=== PATIENT | female | born 1965 | race Caucasian/White ===

== ENCOUNTER → 2023-04-06 | Outpatient (CLI) | payer MEDICARE, MEDICAID, SELFPAY ==
[2023-04-06 17:42] LABS: Absolute Neutrophil Count 5.6 X10^3/uL (2.0-7.7); Basophil# 0.03 X10^3/uL; Basophil% 0.4 % (0-1); Eosinophil# 0.11 X10^3/uL; Eosinophils% 1.4 % (0-5); Hematocrit 46.5 % (37-47); Hemoglobin 14.8 g/dL (12.0-15.0); Lymphocyte % 20.7 % (19-41); Mean Corp Hgb Conc 31.8 g/dL (32-36); Mean Corpuscular Hgb 28.6 pg (27.0-32.0); Mean Corpuscular Volume 89.8 fL (81-99); Mean Platelet Vol. 10.6 fl (6.2-12.0); Monocyte# 0.39 X10^3/uL; NRBC Flagged by Analyzer 0 % (0-5); Neutrophil # 5.59 X10^3/uL (2.7-7.7); Neutrophil % 72.2 % (47-70); Platelet Count 287 K/mm3 (150-450); Red Blood Count 5.18 M/mm3 (4.2-5.4); White Blood Count 7.7 K/mm3 (4.4-11.0)
[2023-04-06 18:21] LABS: Hemoglobin A1c 5.9 % (3.8-5.6)
[2023-04-06 18:40] LABS: ALB/GLOB Ratio 0.7 RATIO (0.9-2.4); AST(SGOT) 15 U/L (15-37); Alanine Aminotransfer ALT/SGPT 21 U/L (13-56); Albumin, Serum 3.1 g/dL (3.2-5.0); Alkaline Phosphatase 111 U/L (45-117); Anion Gap 6 (5-15); BUN 10 mg/dL (7-18); BUN/Creat Ratio 14.5 RATIO (10-20); Calcium,Total 8.7 mg/dL (8.5-10.1); Chloride 105 mmol/L (98-107); Cholesterol 158 mg/dL (200); Creatinine, Serum 0.69 mg/dL (0.55-1.02); EST Glomerular Filtration Rate 93 mL/min (>60); Est Glom Filt Rate - Afr Amer 113 mL/min (>60); Globulin 4.5 g/dL (2.2-4.2); Glucose 97 mg/dL (74-106); High Density Lipoprotein 63 mg/dL; Potassium 3.9 mmol/L (3.5-5.1); Protein, Total 7.6 g/dL (6.4-8.2); Sodium Level 138 mmol/L (136-145); T4 Free Direct 0.97 ng/dL (0.76-1.46); Thyroid Stim Hormone (TSH) 1.43 uIU/mL (0.358-3.74); Triglycerides 163 mg/dL; Very Low Density Lipoprotein 33 mg/dL (5-40)
[2023-04-08 04:07] LABS: Thyroid Peroxidase AB 12 IU/mL (0-34)
== END | disposition home or self-care (01) ==
LOC: MFPLAB 16:44
PROVIDERS: PCP Family Medicine; Visit Provider Family Medicine
DX: R79.89 Other specified abnormal findings of blood chemistry (principal); E11.9 Type 2 diabetes mellitus without complications
CPT/HCPCS: 80053; 80061; 83036; 84439; 84443; 85025; 86376

== ENCOUNTER 2023-06-21 15:31 | Emergency (ER) | payer MEDICARE, MEDICAID, SELFPAY ==
[2023-06-21] VITALS (7 sets, daily range): BP systolic 122–142; BP diastolic 77–96; PULSE 63–78; RESP 16–20; TEMP 36.4–36.6; O2SAT 94–98; BMI 56.2
--- NOTE | 2023-06-21 15:46 | EKG12_ITS ---
Test Reason : SOB/CP Blood Pressure : / mmHG Vent. Rate : 065 BPM Atrial Rate : 065 BPM P-R Int : 166 ms QRS Dur : 090 ms QT Int : 442 ms P-R-T Axes : 054 -07 040 degrees QTc Int : 459 ms Normal sinus rhythm Normal ECG Confirmed by JUVENTINO MOREIRA, SARTHAK ([id number]), telegraph editor LESLIE COLEMAN ([id number]) on 06/28/2023 9:56:47 AM Referred By: Confirmed By:OLGA JAUREGUI MD
--- NOTE | 2023-06-21 15:47 | EDS_ITS ---
HPI History of Present Illness Chief Complaint: Chest Pain Informant: patient Onset/Context/Timing Onset: Today Narrative Narrative: Patient presents secondary to sharp chest pain. She was on her way home for doctor's appointment today when she got sudden onset of sharp pain to the right upper chest and into the right neck. She describes this as a angina attack. She states her symptoms improved after taking 2 nitro. She had a similar attack within the past month and was seen at [facility] in [place]. Her workup was negative. Her PCP has referred her to cardiology and she has an appointment to see the group here at [facility] on July 15. She states she was told she needed a stress test. Patient does report a history of a prior heart attack in she believes 2016. She states the heart cath showed a blockage but was told it was in a spot that if they try to stent it it will make things worse for her. I do not have records available to review. She is currently on aspirin but does not take Plavix or Brilinta. [facility] Medical History (Updated 06/21/23 @ 20:[address] Kate Bal MD) COPD (chronic obstructive pulmonary disease) Coronary artery disease Diabetes History of myocardial infarction Hx of ovarian cyst Home Medications albuterol sulfate 90 mcg/actuation aerosol inhaler inhalation 02/18/23 [History Last Taken Unknown] atorvastatin 40 mg tablet mg PO 02/18/23 [History Last Taken Unknown] baclofen 10 mg tablet 10 mg PO DAILY 02/18/23 [History Last Taken Unknown] desvenlafaxine succinate 100 mg tablet,extended release 24 hr mg PO 02/18/23 [History Last Taken Unknown] fluticasone fur. 200 mcg-umeclid 62.5 mcg-vilant 25 mcg inhalat.powder (Trelegy Ellipta) inhalation 02/18/23 [History Last Taken Unknown] hydroxyzine HCl 25 mg tablet mg PO 02/18/23 [History Last Taken Unknown] meloxicam 15 mg tablet mg PO 02/18/23 [History Last Taken Unknown] montelukast 10 mg tablet mg PO 02/18/23 [History Last Taken Unknown] nitroglycerin 0.3 mg sublingual tablet mg sublingual 02/18/23 [History Last Taken Unknown] oxybutynin chloride 5 mg tablet mg PO 02/18/23 [History Last Taken Unknown] pantoprazole 40 mg tablet,delayed release mg PO 02/18/23 [History Last Taken Unknown] phentermine 37.5 mg capsule 37.5 mg PO DAILY 02/18/23 [History Last Taken Unknown] bupropion HCl 100 mg tablet,12 hr sustained-release mg PO BID 04/20/23 [History Last Taken Unknown] buspirone 30 mg tablet 30 mg PO BID 04/20/23 [History Last Taken Unknown] fluticasone propionate 50 mcg/actuation nasal spray,suspension 1 spray intranasal DAILY 04/20/23 [History Last Taken Unknown] gabapentin 300 mg capsule mg PO TID 04/20/23 [History Last Taken Unknown] ipratropium 0.5 mg-albuterol 3 mg (2.5 mg base)/3 mL nebulization soln 3 ml inhalation Q4H PRN 04/20/23 [History Last Taken Unknown] metoprolol succinate 25 mg tablet,extended release 24 hr 25 mg PO DAILY PRN 1 06/21/22 [History Last Taken Unknown] psyllium husk (aspartame) 3.4 gram/5.8 gram oral powder (Metamucil Sugar-Free (aspartame)) ea PO BID 04/20/23 [History Last Taken Unknown] ropinirole 0.5 mg tablet mg PO QHS 04/20/23 [History Last Taken Unknown] suvorexant 10 mg tablet (Belsomra) mg PO QHS PRN 04/20/23 [History Last Taken Unknown] trazodone 100 mg tablet mg PO QHS 04/20/23 [History Last Taken Unknown] aspirin 81 mg tablet,delayed release (Adult Aspirin Regimen) 81 mg PO DAILY 06/02/23 [History Last Taken Unknown] Allergy/AdvReac Type Severity Reaction Status Date / Time No Known Allergies Allergy Verified 06/21/23 15:35 Family History Mother Heart disease Surgical History Hx of appendectomy Hx of breast biopsy Hx of tubal ligation Social History Smoking Status: Current every day smoker tobacco type: cigarettes alcohol intake: current alcohol intake frequency: holidays/special occasions only ROS ROS ED Constitutional Constitutional ED: Denies chills or fever(s) Eyes Eyes: Denies discharge from eye(s) ENT ENT ED: Denies discharge from eye(s), rhinorrhea or sore throat Cardiovascular Cardiovascular: Reports chest pain; Denies palpitations Respiratory/Chest Respiratory/Chest: Reports dyspnea; Denies cough Gastrointestinal Gastrointestinal: Denies abdominal pain, nausea or vomiting Genitourinary Genitourinary ED: Denies dysuria Musculoskeletal Musculoskeletal: Denies back pain or extremity pain Integumentary Denies Abrasions or rash Neurologic Neurologic: Denies headache(s) or weakness Psychiatric Psychiatric: Reports anxiety; Denies depression Allergic/Immunologic Allergic/Immunologic ED: Denies lip swelling or urticaria EXAM Physical Exam Const Vital Signs: 06/21/23 15:32 06/21/23 15:38 06/21/23 17:33 Temperature 97.6 F L Temperature Source Temporal Pulse Rate 69 68 Respiratory Rate 18 16 Blood Pressure 135/77 H 135/77 H Blood Pressure Mean 96 96 Pulse Ox 95 94 95 Oxygen Delivery Method Room Air Room Air Room Air Oxygen Flow Rate (L/min) 06/21/23 17:33 06/21/23 19:10 06/21/23 19:16 Temperature 98 F Temperature Source Temporal Pulse Rate 63 73 71 Respiratory Rate 16 20 H 19 H Blood Pressure 122/96 H 134/79 H Blood Pressure Mean 104 97 Pulse Ox 96 97 97 Oxygen Delivery Method Room Air Nasal Cannula Oxygen Flow Rate (L/min) 2 Positive well nourished and well developed General Appearance ED: well developed HEENT Reports moist mucous membranes Eyes EOMs intact bilaterally Chest Wall inspection of chest normal and palpation of chest normal Resp normal respiratory effort and clear to auscultation bilaterally Cardio regular rate and regular rhythm GI soft to palpation and non-tender Extremity Extremity Narrative: Scattered bruises noted to the lower extremities. No erythema or excessive warmth. Neuro oriented x3 Neuro Narrative: No focal neurologic deficit. MDM MDM MDM Narrative Medical decision making narrative: Patient placed on satellite project site monitor. EKG obtained to evaluate for cardiac arrhythmia/ischemia. IV line initiated. Labwork obtained to evaluate for leukocytosis, anemia, and electrolyte derangement. Chest x-ray obtained to evaluate for acute lung pathology, cardiac size, or mediastinal abnormality. Patient did take aspirin and nitro prior to arrival. History & Record Review Discussion w/independent historian: Patient Lab Data Attestation: I reviewed the patient's lab results. Labs: Laboratory Results - last 24 hr 06/21/23 06/21/23 16:51 19:39 WBC 13.1 H RBC 5.40 Hgb 15.4 H Hct 47.9 H MCV 88.7 MCH 28.5 MCHC 32.2 RDW Std Deviation 47.6 H RDW Coeff of Nya 14.6 Plt Count 291 MPV 9.7 Immature Gran % (Auto) 0.400 Neut % (Auto) 83.9 H Lymph % (Auto) 9.8 L Dewey % (Auto) 5.3 Eos % (Auto) 0.3 Baso % (Auto) 0.3 Absolute Neuts (auto) 11.0 H Absolute Lymphs (auto) 1.28 Nucleated RBC % 0 Sodium 134 L Potassium 3.8 Chloride 102 Carbon Dioxide 29.0 Anion Gap 3 L BUN 14 Creatinine 0.87 Estim Creat Clear Calc 113.59 Est GFR (MDRD) Af Amer 86 Est GFR (MDRD) Non-Af 71 BUN/Creatinine Ratio 16.1 Glucose 117 H Calcium 9.6 Troponin I High Sens 8 8 Radiography Chest X-Ray - ED: 1 View, Read by ED Physician, Normal, Heart, Lungs and Mediastinum Diagnostic Testing: Clinical Impression(s) from Imaging Studies Chest X-Ray 06/21/23 16:58 IMPRESSION: No radiographic evidence of acute cardiopulmonary disease. Electronically Signed: Shan Weston MD at 17:49 EST , EKG Initial EKG: Attestation: I personally reviewed and interpreted this EKG as follows: Interpretation: Sinus Rhythm (Sinus at 65 with no acute ischemia.) Treatment and Re-Evaluation :: CBC was a white count of 13.1 with 84% neutrophils. Hemoglobin is 15.4. Chemistry studies largely unremarkable with normal renal function. Troponin is 8. EKG is sinus at 65 with no evidence of ischemia. Portable chest x-ray unremarkable per my interpretation. Radiology interpretation reviewed and agrees. Repeat 2-hour troponin is also 8. At this time patient is resting comfortably. We discussed her having more frequent episodes of this chest pain and she has already been referred to have a stress test. I offered to admit her for this testing but she states that she believes this would make her anxiety worse and wishes to wait for her appointment. With 2 negative troponins I do feel that we can discharge her to home, however patient was given instructions to return if she has any concerns. I also recommended she talk to the cardiology office to see if she can be placed on a cancellation list so that she might be able to be seen sooner. Discharge Plan Triage Chief Complaint: Chest Pain ED Provider: Kate Bal Dx/Rx/DC Orders Clinical Impression: Chest pain Instructions: ED Chest Pain, Uncertain Cause Prescriptions: No Action Trelegy Ellipta 200-62.5-25 mcg blister with device inhalation atorvastatin 40 mg tablet PO desvenlafaxine succinate 100 mg tablet extended release 24 hr PO oxybutynin chloride 5 mg tablet PO pantoprazole 40 mg tablet,delayed release (DR/EC) PO montelukast 10 mg tablet PO hydroxyzine HCl 25 mg tablet PO albuterol sulfate 90 mcg/actuation HFA aerosol inhaler inhalation meloxicam 15 mg tablet PO nitroglycerin 0.3 mg tablet, sublingual sublingual baclofen 10 mg tablet 10 mg PO DAILY phentermine 37.5 mg capsule 37.5 mg PO DAILY Rx Instructions: must administer 30 minutes before or 1-2 hours after breakfast gabapentin 300 mg capsule PO TID bupropion HCl 100 mg tablet sustained-release 12 hr PO BID ropinirole 0.5 mg tablet PO QHS Belsomra 10 mg tablet PO QHS PRN trazodone 100 mg tablet PO QHS fluticasone propionate 50 mcg/actuation spray,suspension 1 spray intranasal DAILY Rx Instructions: administer into each nostril buspirone 30 mg tablet 30 mg PO BID ipratropium-albuterol 0.5 mg-3 mg(2.5 mg base)/3 mL solution for nebulization 3 ml inhalation Q4H PRN metoprolol succinate 25 mg tablet extended release 24 hr 25 mg PO DAILY PRN Metamucil Sugar-Free (aspart) 3.4 gram/5.8 gram powder PO BID aspirin [Adult Aspirin Regimen] 81 mg tablet,delayed release (DR/EC) 81 mg PO DAILY Primary Care Provider: Luis Herrera Referrals: Luis Herrera MD [Primary Care Provider] - Activity Restrictions/Additional Instructions: Follow-up with cardiology as discussed. Disposition Disposition: Home, Self Care
--- NOTE | 2023-06-21 15:50 | NURSING ---
NO OLD EKGS
[2023-06-21 16:58] LABS: Absolute Lymphocyte Count 1.28 X10^3/uL (0.83-4.51); Basophil# 0.04 X10^3/uL; Basophil% 0.3 % (0-1); Eosinophil# 0.04 X10^3/uL; Eosinophils% 0.3 % (0-5); Hematocrit 47.9 % (37-47); Hemoglobin 15.4 g/dL (12.0-15.0); Lymphocyte # 1.28 X10^3/ul (0.83-4.51); Lymphocyte % 9.8 % (19-41); Mean Corp Hgb Conc 32.2 g/dL (32-36); Mean Corpuscular Hgb 28.5 pg (27.0-32.0); Mean Corpuscular Volume 88.7 fL (81-99); Mean Platelet Vol. 9.7 fl (6.2-12.0); Monocyte# 0.69 X10^3/uL; Monocyte% 5.3 % (0-10); NRBC Flagged by Analyzer 0 % (0-5); Neutrophil # 10.96 X10^3/uL (2.7-7.7); Neutrophil % 83.9 % (47-70); Platelet Count 291 K/mm3 (150-450); RBC Distribution Width CV 14.6 % (11.6-14.6); RBC Distribution Width SD 47.6 fl (35.1-43.9); White Blood Count 13.1 K/mm3 (4.4-11.0)
--- NOTE | 2023-06-21 16:58 | RAD_ITS ---
EXAM: XR CHEST, 1 VIEW CLINICAL INDICATION: chest pain TECHNIQUE: Frontal view of the chest. COMPARISON: No relevant prior studies available. FINDINGS: LUNGS AND PLEURAL SPACES: Unremarkable. No consolidation or edema. No pneumothorax. No effusion. HEART: Unremarkable. Cardiac silhouette not enlarged. MEDIASTINUM: Central airways and mediastinal contour are unremarkable. BONES/JOINTS: Unremarkable. No acute fracture. SOFT TISSUES: Unremarkable. RAD/Chest 1 View (Portable) IMPRESSION: No radiographic evidence of acute cardiopulmonary disease. Electronically Signed: Shan Weston MD at 17:49 EST ,
[2023-06-21 17:20] LABS: Anion Gap 3 (5-15); BUN 14 mg/dL (7-18); BUN/Creat Ratio 16.1 RATIO (10-20); Calcium,Total 9.6 mg/dL (8.5-10.1); Chloride 102 mmol/L (98-107); Creatinine, Serum 0.87 mg/dL (0.55-1.02); EST Glomerular Filtration Rate 71 mL/min (>60); Est Glom Filt Rate - Afr Amer 86 mL/min (>60); Estimated Creatinine Clearance 113.59 ml/min; Glucose 117 mg/dL (74-106); Potassium 3.8 mmol/L (3.5-5.1); Sodium Level 134 mmol/L (136-145); Troponin-I HS (w/2H Reflex) 8 pg/mL (3.0-54.0)
[2023-06-21 18:56] LABS: Reflex Troponin-HS? (from REC) Y
[2023-06-21 20:04] LABS: Troponin-I HS 8 pg/mL (3.0-54.0)
== END 2023-06-21 20:26 | disposition home or self-care (01) ==
PROVIDERS: Emergency Provider Emergency Medicine; PCP Family Medicine; Visit Provider Emergency Medicine
DX: R07.9 Chest pain, unspecified (principal); J44.9 Chronic obstructive pulmonary disease, unspecified; E11.9 Type 2 diabetes mellitus without complications; Z79.82 Long term (current) use of aspirin; I25.10 Atherosclerotic heart disease of native coronary artery without angina pectoris; I25.2 Old myocardial infarction; Z79.899 Other long term (current) drug therapy; Z79.51 Long term (current) use of inhaled steroids; F17.210 Nicotine dependence, cigarettes, uncomplicated
CPT/HCPCS: 71045; 80048; 84484; 85025; 93005; 99284; A4216

== ENCOUNTER 2023-08-17 12:42 | Outpatient (CLI) | payer MEDICARE, MEDICAID, SELFPAY ==
--- NOTE | 2023-08-17 12:51 | CT_ITS ---
STUDY: CT CHEST WITHOUT CONTRAST REASON FOR EXAM: Female, 57 years old. SOB RADIATION DOSAGE (If Supplied By Facility): CTDIvol = ( 48.66 ) mGy, DLP = ( 2707.93 ) mGycm TECHNIQUE: Transaxial imaging was performed without the administration of intravenous contrast material. Cardiac over read examination. Individualized dose optimization techniques were used for this CT. COMPARISON: No relevant priors. FINDINGS: CHEST Linear scarring is seen in the lung bases as well as in the anterior aspect of the lingular segment of the left upper lobe. There is no demonstrated pleural abnormality. There are minimal calcifications of the coronary arteries. There are small lymph nodes within the mediastinum, which are normal in size and morphology most compatible with reactive lymph hyperplasia. Normal hilar regions. Normal unenhanced pulmonary arteries. There is mild atherosclerotic calcification of the aortic arch. There are degenerative changes of the thoracic spine. Fatty infiltration of the liver. CT/Limited Chest CT Cardiac Only IMPRESSION: Minimal coronary artery calcification. Linear scarring in the lung bases as well as in the anterior aspect of the lingular segment of the left upper lobe. Electronically Signed: Jorgito Morales MD at 15:20 EDT ,
[2023-08-17 13:20] VITALS: BP 141/78; PULSE 64; RESP 18; O2SAT 93; BMI 56.0
[2023-08-17 13:24] LABS: CREATININE FINGERSTICK < 1.0 mg/dL (0.55-1.02); EGFR FINGERSTICK > 60.0000 mL/min (>60)
[2023-08-17 13:31] VITALS: BP 141/78; PULSE 64
[2023-08-17] MEDS: Nitroglycerin SL (ED/IMG/CATH) 0.4 MG TABLET SL (13:31)
[2023-08-17 13:45] VITALS: BP 96/68; PULSE 67; RESP 18; O2SAT 92
--- NOTE | 2023-08-22 17:41 | CCTA.WCONT ---
CCTA w/Cont Coronary Arteries Date of Study:: 08/17/23 Shortness of breath Coronary Calcium Scoring: High-resolution Computed Tomographic imaging of the chest was performed on [08/17/2023], with particular attention paid to the coronary arteries. Intravenous contrast agent was administered per protocol and images reconstructed and displayed. LEFT MAIN CORONARY ARTERY: This arose from the left coronary cusp and bifurcating to left anterior descending artery and left circumflex artery. No significant stenosis was noted in this vessel. [] LEFT ANTERIOR DESCENDING CORONARY ARTERY: No significant atherosclerotic plaquing was noted in this vessel. [] LEFT CIRCUMFLEX CORONARY ARTERY: No significant atherosclerotic plaquing was noted in this vessel. [] RIGHT CORONARY ARTERY: No significant atherosclerotic plaquing was noted in this vessel. [] THORACIC AORTA: Normal [] PULMONARY ARTERY: Normal CORONARY CALCIUM SCORE: 0 Conclusion: No significant atherosclerotic cardiovascular disease present. Coronary calcium score of 0. []
== END 2023-08-17 23:59 | disposition home or self-care (01) ==
LOC: CT 12:46
PROVIDERS: PCP Family Medicine; Referring Provider Internal Medicine Cardiovascular Disease; Visit Provider Internal Medicine Cardiovascular Disease
DX: R06.02 Shortness of breath (principal); R53.83 Other fatigue; R07.9 Chest pain, unspecified; I25.10 Atherosclerotic heart disease of native coronary artery without angina pectoris; R91.8 Other nonspecific abnormal finding of lung field; K76.0 Fatty (change of) liver, not elsewhere classified
CPT/HCPCS: 75571; 75574; 76380; Q9967

== ENCOUNTER → 2023-08-23 | Outpatient (CLI) | payer MEDICARE, MEDICAID, SELFPAY ==
--- NOTE | 2023-08-23 14:04 | ECHOCS_ITS ---
Reason For Study: CHEST PAIN Procedure This was a 2D Doppler, Color Flow transthoracic echocardiogram. The study was technically difficult. Limited views were obtained. Contrast injection was performed. Exam performed in department. Left Ventricle The left ventricular ejection fraction is 60 %. Unable to assess diastolic function. Right Ventricle Mildly dilated right ventricle. Mild to moderate global right ventricular systolic dysfunction. Atria The left atrium is not well visualized. The right atrium is not well visualized. Mitral Valve Mitral valve not well visualized. Tricuspid Valve The tricuspid valve is not well visualized. Aortic Valve The aortic valve is not well visualized. Pulmonic Valve The pulmonic valve is not well visualized. Great Vessels Mildly dilated aortic root. Pericardium/Pleural No pericardial effusion. Medication 22 gauge I.V. with prn adaptor inserted into right arm. Diluted definity 3.5ml given slow IV push to enhance endocardial definition. MMode/2D Measurements & Calculations RVDd: 3.5 cm LVOT diam: 2.0 cm Ao root diam: 3.7 cm LVOT area: 3.0 cm2 LAV(MOD-bp): 36.7 ml SV(MOD-sp4): 41.1 ml LVAd ap4: 24.9 cm2 LAV(MOD-bp) Indexed: 14.4 ml/m2 LVLd ap4: 7.9 cm LAV(MOD-sp2): 41.5 ml EDV(MOD-sp4): 62.6 ml LAV(MOD-sp4): 31.8 ml EDV(sp4-el): 66.1 ml LVAs ap4: 12.7 cm2 LVLs ap4: 6.2 cm ESV(MOD-sp4): 21.5 ml ESV(sp4-el): 21.9 ml EF(MOD-sp4): 65.6 % EF(sp4-el): 66.9 % SV(sp4-el): 44.2 ml LA dimension(2D): 3.6 cm TAPSE: 1.7 cm Time Measurements MV dec time: 0.23 sec Doppler Measurements & Calculations MV E max boris: 64.9 cm/sec Lat Peak E' Boris: 8.9 cm/sec Med Peak E' Boris: 10.5 cm/sec MV A max boris: 84.1 cm/sec E/E' lat: 7.3 E/E' med: 6.2 MV E/A: 0.77 Ao V2 max: 130.0 cm/sec LV V1 max: 105.1 cm/sec MV dec slope: 284.1 cm/sec2 Ao max P.8 mmHg LV V1 max P.4 mmHg Ao V2 mean: 97.5 cm/sec LV V1 mean P.9 mmHg Ao mean P.2 mmHg LV V1 mean: 82.7 cm/sec Ao V2 VTI: 23.4 cm LV V1 VTI: 18.9 cm AV (velocity ratio): 0.81 RAÚL(I,D): 2.4 cm2 RAÚL(V,D): 2.4 cm2 SV(LVOT): 57.0 ml PA V2 max: 92.2 cm/sec PA max PG (full): 1.3 mmHg ECHO/Echo Complete W/ Contrast Interpretation Summary The study was technically difficult. Suboptimal images. The left ventricular ejection fraction is 60 %. Mildly dilated right ventricle. Mild to moderate global right ventricular systolic dysfunction. Mildly dilated aortic root. Ordering Physician: Veto Farley Referring Physician: Veto Farley MD Performed By: Talia Wills RDCS
== END | disposition home or self-care (01) ==
LOC: CVS 14:04
PROVIDERS: PCP Family Medicine; Referring Provider Internal Medicine Cardiovascular Disease; Visit Provider Internal Medicine Cardiovascular Disease
DX: R07.9 Chest pain, unspecified (principal); R06.02 Shortness of breath; R53.83 Other fatigue; R60.9 Edema, unspecified
CPT/HCPCS: 93306; Q9957; A4216; C8929

== ENCOUNTER 2023-10-11 06:37 | Day surgery (SDC) | payer MEDICARE, MEDICAID, SELFPAY ==
[2023-10-11] VITALS (9 sets, daily range): BP systolic 88–132; BP diastolic 65–87; PULSE 71–81; RESP 16; TEMP 36.1–36.3; O2SAT 92–99; BMI 56.9
[2023-10-11] MEDS: Lactated Ringers 1,000 ML 15 ML IV (07:33)
[2023-10-11] MEDS: Midazolam 2 MG/2 ML Syringe IV (07:34)
--- NOTE | 2023-10-11 08:12 | RAD_ITS ---
PROCEDURE: Bilateral L4-L5 and L5-S1 medial branch nerve block. DATE OF EXAMINATION: October 11, 2023. INDICATION: Female, 57 years old. Chronic low back pain. FLUOROSCOPY TIME (if supplied): (26 seconds) minutes/seconds. 31.32 mGy. 6 images were submitted. RAD/Lumbar Spine 2 or 3 Views IMPRESSION: Intraoperative fluoroscopic services provided for bilateral L4-L5 and L5-S1 medial nerve block. Electronically Signed: Jogrito Morales MD at 15:33 EDT ,
[2023-10-11] MEDS: Midazolam 2 MG/2 ML Syringe (08:15)
[2023-10-11] MEDS: MethylPREDNISolone Acetate 80 MG/ML Vial (08:20)
[2023-10-11] MEDS: Lidocaine 1% (5 ml sdv) 5 ML Vial (08:21)
[2023-10-11] MEDS: Bupivacaine 0.25% 30 ML Vial (08:21)
--- NOTE | 2023-10-11 10:32 | OP.PCM_ITS ---
Report of Operation Date of Procedure: 10/11/23 Pre-Operative Diagnosis: Lumbosacral spondylosis, lumbosacral degenerative dise ase, lumbar facet arthropathy Post-Operative Diagnosis: Lumbosacral spondylosis, lumbosacral degenerative disease, lumbar facet arthropathy Description of Surgical Findings:: PROCEDURE PERFORMED: Bilateral lumbar medial branch block at L4, L5, and S1. ANESTHESIA: Moderate sedation BLOOD LOSS: Minimal. COMPLICATIONS: None. DESCRIPTION OF PROCEDURE: History and physical of today was reviewed. Risks and benefits of the procedure were explained. The patient understood and agreed to proceed. Informed consent was obtained. IV inserted per routine protocol. The patient was taken to the operating room and placed in the prone position with a pillow positioned underneath the abdomen. The lower back area was prepped and draped in a sterile fashion using iodine x3. Under fluoroscopy guidance on AP view, the L4 through S1 vertebral bodies were visualized. The skin and subcutaneous tissue was anesthetized with approximately 5 mL of 1% lidocaine using a 25-gauge regular needle. Under direct visualization with fluoroscopy, at approximately 25-degree angle, starting on the left L4, ending on the right L4, passing through the L5 and S1 bilaterally, using a 22-gauge 3-1/2-inch spinal needle, the needle was advanced via the skin. The tip of the needle was maneuvered and directed towards the superior medial gutter of the transverse process at the vicinity of the medial branch. Once tip of the needle was in contact with the bone, the needle was pulled approximately 2 mm off the bone. After negative aspiration for blood or CSF and confirmation on AP, oblique as well as lateral view, a total of 12 mL of preservative-free 0.25% Marcaine with 80 mg of Depo-Medrol was injected in divided doses between those six levels. The needles were then removed intact. The patient experienced no sign or symptoms of intrathecal or intravascular injection. The patient experienced no paresthesia. The procedure was completed without any apparent difficulty or any complications. The patient appeared to tolerate it well. ASSESSMENT AND PLAN: This is a 57-year-old female with lumbosacral spondylosis, lumbosacral degenerative disease, lumbar facet arthropathy status post bilateral lumbar medial branch block at L4-S1, patient will continue her current medications, patient will follow in approximately 1 to 2 weeks for reevaluation
== END 2023-10-11 09:47 | disposition home or self-care (01) ==
LOC: SDC 06:38 → AC 06:39
PROVIDERS: PCP Family Medicine; Referring Provider Anesthesiology Pain Medicine; Visit Provider Anesthesiology Pain Medicine
PROC: 3E0S3BZ Introduction of Anesthetic Agent into Epidural Space, Percutaneous Approach (ICD-10-PCS; CPT 62322; principal; 2023-10-11 07:45)
DX: M47.817 Spondylosis without myelopathy or radiculopathy, lumbosacral region (principal); M51.37 Other intervertebral disc degeneration, lumbosacral region; M46.96 Unspecified inflammatory spondylopathy, lumbar region; Z79.51 Long term (current) use of inhaled steroids; Z79.82 Long term (current) use of aspirin; Z79.899 Other long term (current) drug therapy
CPT/HCPCS: 64493; 64494; 64483; 72100; 99152; 99153; J7120; A4216

== ENCOUNTER 2023-11-29 05:51 | Day surgery (SDC) | payer MEDICARE, MEDICAID, SELFPAY ==
[2023-11-29] VITALS (7 sets, daily range): BP systolic 93–114; BP diastolic 51–86; PULSE 67–78; RESP 16–18; TEMP 36.1–37.1; O2SAT 92–97; BMI 61.7
--- NOTE | 2023-11-29 06:30 | RAD_ITS ---
PROCEDURE: Left L4-S1 radiofrequency ablation. DATE OF EXAMINATION: November 29, 2023. INDICATION: Female, 58 years old. Chronic low back pain. FLUOROSCOPY TIME (if supplied): (29 seconds) minutes/seconds. 40.24 mGy. 9 fluoroscopic images were obtained. RAD/Lumbar Spine 2 or 3 Views IMPRESSION: Intraoperative fluoroscopic images provided for left L4-S1 radiofrequency ablation. Electronically Signed: Jorgito Morales MD at 15:14 EDT ,
[2023-11-29] MEDS: Lactated Ringers 1,000 ML 15 ML IV (06:49)
--- NOTE | 2023-11-29 07:29 | PCM.PRE.AN2 ---
ASA Classification* ASA Classification ASA Classification: 3 Assessment & Plan Anesthesia* Anesthesia Assessment Anesthesia Assessment: Discussed sedation and/or anesthesia options, risks, benefits, and alternatives with patient/parents/legal guardian/POA. Questions invited. The patient/parents/legal guardian/POA seems to understand and agrees to proceed with anesthesia plan. Reviewed the physical assessment, medical history, allergy history and patient home medications list prior to surgery/procedure/anesthetic and documented any changes. Performed airway and anesthesia risk assessments. Anesthesia Type Anesthesia Type: MAC (*see written pre anesthesia record for full assessment) Anesthesia Focused Assessment* Temperature: 98.8 F Pulse Rate: 78 Blood Pressure: 114/86 Respiratory Rate: 18 Pulse Ox: 97 Airway Assessment Mouth opens: >3 cm Mallampati Score: III Focused Labs Anesthesia Preop lab: CBC WBC 13.1 K/mm3 (4.4-11.0) H 06/21/23 16:51 RBC 5.40 M/mm3 (4.2-5.4) 06/21/23 16:51 Hgb 15.4 g/dL (12.0-15.0) H 06/21/23 16:51 Hct 47.9 % (37-47) H 06/21/23 16:51 Plt Count 291 K/mm3 (150-450) 06/21/23 16:51 CHEMISTRY Potassium 3.8 mmol/L (3.5-5.1) 06/21/23 16:51 Sodium 134 mmol/L (136-145) L 06/21/23 16:51 BUN 14 mg/dL (7-18) 06/21/23 16:51 Creatinine 0.87 mg/dL (0.55-1.02) 06/21/23 16:51 Glucose 117 mg/dL (74-106) H 06/21/23 16:51 TSH 1.43 uIU/mL (0.358-3.74) 04/06/23 16:44 COAG Pre-Assessment Diagnosis/Proposed Procedure Planned Operative Procedure(s): bird Anesthesia History Anesthesia History - director patient financial services: Anesthesia History - director patient financial services Hx Hospitalization No 10/07/23 09:26 Any Problems With Anesthesia No 10/07/23 09:26 Cholinesterase deficiency No 10/07/23 09:26 You/Your Family Experience No 10/07/23 09:26 fever (hyperthermia) with Relationship Recent Exposure to Contagious No 11/29/23 06:22 Disease Does patient have nerve No 10/07/23 09:26 stimulator Patient instructed to have device shut off --Does patient have Pacemaker No 11/29/23 06:22 or ICD? When Was Last Pacemaker Check QUESTION #4 FULL TEXT: You/Your Family Experience fever (hyperthermia) with Anesthesia Last Oral Intake Last Oral intake: Last Oral Intake NPO since 03:30 11/29/23 06:22 Meds taken in AM with sips of Yes 11/29/23 06:22 water? Meds patient instructed to take am of surgery PONV PONV - director patient financial services: PONV - director patient financial services Female HX of Motion Sickness HX of N/V After Surgery Non-Smoker Duration of Surgery greater than 60 minutes Number of Risk Factors PONV Score Height & Weight Height & Weight: Anesthesia: Height & Weight Height 5 ft 4 in 11/29/23 06:22 Weight: 163.3 kg 11/29/23 06:22 Body Mass Index (BMI) 61.7 11/29/23 06:22 Respiratory Assessment Respiratory Assessment - director patient financial services: Respiratory Tract Infection Hx - director patient financial services Hx Respiratory Tract Infection No 10/07/23 09:26 STOP Sleep Apnea STOP Sleep Apnea - director patient financial services: STOP Sleep Apnea - director patient financial services Hx Hypertension Yes 10/07/23 09:26 Hx Sleep Apnea Yes 10/11/23 09:00 CPAP Yes: UNABLE TO TOLERATE MASK 10/11/23 08:30 BIPAP No 10/07/23 09:26 Do you snore loudly (louder than talking or can be heard Do you often feel tired/ fatigued/ sleepy during daytime? Has anyone observed you stop breathing during sleep? STOP Results QUESTION #5 FULL TEXT : Do you snore loudly (louder than talking or can be heard through closed doors)? 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 Specify any problems Hx of Preganancy in last 3 Months Nurse Filling Out Transfusion & Questions: Date: Time: Patient unable to answer at this time (ie. confused, unrespo /Reproduction History /Reproductive History - director patient financial services: /Reproductive Hx- director patient financial services Hx Now Gestational Age (in weeks): EDC: Hx Hx Para Hx Section SAB No 10/07/23 09:26 Active Medications Active Medications: Current Medications Generic Name Dose Route Start Last Admin Trade Name Freq PRN Reason Stop Dose Admin Lactated Ringer's 1,000 mls @ 15 mls/hr 11/29/23 06:15 11/29/23 06:49 IV 15 mls/hr .Q48H NEREIDA Administration PFSH Medical History Wears glasses Wears partial dentures Anxiety Rash Uses wheelchair Walker as ambulation aid Ambulates with cane Arthritis Bladder disease Fatty liver Back pain Smoker CPAP (continuous positive airway pressure) dependence Sleep apnea Asthma COPD (chronic obstructive pulmonary disease) History of echocardiogram Cardiology follow-up encounter Dyslipidemia Hypertension Idiopathic spontaneous dissection of coronary artery Morbid obesity Hyperlipidemia Insulin resistance Depression Restless leg syndrome Insomnia AMIE (obstructive sleep apnea) GERD (gastroesophageal reflux disease) Lumbar stenosis Breast mass, right Bladder spasm Fibromyalgia SOB (shortness of breath) on exertion Fatigue Edema Abnormal TSH Anxiety, generalized Chest pain at rest Chest pain History of myocardial infarction Coronary artery disease Angina pectoris without myocardial infarction Facet arthritis of lumbosacral region Obesity Left knee DJD Right knee DJD Lower extremity pain Peripheral polyneuropathy Sacroiliac joint dysfunction of right side Low back pain Hx of ovarian cyst Angina pectoris COPD (chronic obstructive pulmonary disease) Diabetes Home Medications ?Medication ?Instructions ?Recorded ?Last Taken ?Type albuterol sulfate 90 mcg/actuation 2 puff inhalation Q4H PRN 02/18/23 Unknown History aerosol inhaler shortness of breath or wheezing fluticasone propionate 50 1 spray intranasal DAILY 04/20/23 Unknown History mcg/actuation nasal spray,suspension ipratropium 0.5 mg-albuterol 3 mg 3 ml inhalation Q4H PRN shortness 04/20/23 Unknown History (2.5 mg base)/3 mL nebulization of breath soln aspirin 81 mg tablet,delayed 81 mg PO DAILY 06/02/23 Unknown History release (Adult Aspirin Regimen) atorvastatin 40 mg tablet 40 mg PO DAILY 06/29/23 Unknown History desvenlafaxine succinate 100 mg 100 mg PO DAILY 06/29/23 11/29/23 History tablet,extended release 24 hr ergocalciferol (vitamin D2) 1,250 1,250 mcg PO QWEEK 06/29/23 Unknown History mcg (50,000 unit) capsule fluticasone fur. 200 mcg-umeclid 1 inh inhalation DAILY 06/29/23 10/11/23 History 62.5 mcg-vilant 25 mcg inhalat.powder (Trelegy Ellipta) hydroxyzine HCl 25 mg tablet 25 mg PO DAILY 06/29/23 Unknown History nystatin 100,000 unit/gram topical 1 applic topical DAILY 06/29/23 Unknown History powder (Nystop) oxybutynin chloride 5 mg tablet 5 mg PO DAILY 06/29/23 Unknown History pantoprazole 20 mg tablet,delayed 20 mg PO DAILY 06/29/23 Unknown History release ropinirole 0.5 mg tablet 0.5 mg PO QHS 06/29/23 Unknown History trazodone 100 mg tablet 100 mg PO QHS 06/29/23 Unknown History amlodipine 5 mg tablet 5 mg PO DAILY #90 tabs 07/07/23 11/29/23 Rx montelukast 10 mg tablet 10 mg PO DAILY 07/07/23 Unknown History hydrocodone-acetaminophen 5-325mg 1 tab PO QDAY PRN pain 08/26/23 Unknown History 5mg-325mg nitroglycerin 0.3 mg sublingual 0.3 mg sublingual ONCE PRN chest 08/26/23 Unknown History tablet pain suvorexant 10 mg tablet (Belsomra) 10 mg PO QHS PRN sleep 08/26/23 Unknown History Allergy/AdvReac Type Severity Reaction Status Date / Time adhesive tape Allergy Intermediate Rash Verified 11/29/23 06:17 Family History Mother Heart disease Arthritis Grandmother Heart disease Surgical History Hx of cardiac catheterization Hx of ovarian cystectomy Hx of tubal ligation Hx of breast biopsy Hx of appendectomy Social History Smoking Status: Current every day smoker tobacco type: cigarettes alcohol intake: never substance use type: does not use caffeine: Yes Type: coffee Number of servings: 32 Review of Systems (Anesthesia) ROS Narrative System reviewed and no additional complaints, except as documented.
[2023-11-29] MEDS: Lidocaine 1% (30 ml sdv) 30 ML Vial (07:44)
[2023-11-29] MEDS: Triamcinolone Acetonide 40 MG/ML Vial (07:45)
--- NOTE | 2023-11-29 07:54 | PCM.OPRPT ---
Report of Operation Date of Procedure: 11/29/23 Pre-Operative Diagnosis: Lumbosacral spondylosis, lumbosacral degenerative disc disease, lumbar facet arthropathy Post-Operative Diagnosis: Lumbosacral spondylosis, lumbosacral degenerative disc disease, lumbar facet arthropathy Surgery/Procedure Performed:: Left-sided lumbar radiofrequency ablation of the medial branch L4, L5, S1 Type of Anesthesia: MAC Estimated Blood Loss (mL): Minimal Description of Procedure: History and physical today was reviewed. Risks and benefits of procedure explained. The patient understood, agreed to the procedure and informed consent was obtained. IV inserted per routine protocol. The patient was taken to the operating room, placed in the prone position with a pillow positioned underneath the abdomen. The left side of the lower back was prepped and draped in a sterile fashion using iodine x 3. Under fluoroscopy guidance, on an oblique view, the L3 through S1 vertebral bodies were visualized. The skin and subcutaneous tissue was anesthetized with approximately 10 mL of 1% lidocaine using a 25-gauge regular needle. Under direct visualization with fluoroscopy at approximately 25-degree angle, starting on the left L3, ending on the left S1 passing through the L4-L5 using a 20-gauge 15 cm with a 10 mm curved active tip radiofrequency ablation needle the needle passed through the skin. The tip of the needle was maneuvered and directed towards the superior and medial gutter of the transverse process at the vicinity of the medial branch. Once the tip of the needle was in contact with the bone, the needle pulled approximately 2 mm up the bone. The stylet of each needle was then removed. After negative aspiration of blood with CSF and confirmation of AP as well as oblique view, radiofrequency ablation probe was then inserted at each level. Impedance was then recorded at L3 to be 391, at L4 372, at L5 412, at S1 429 ohm. Motor-evoked potential was then initiated to 1.5 volt without any motor response at each corresponding level. The probe was then removed intact and a total of 6 mL preservative-free 1% lidocaine was injected in divided doses between those 4 levels after negative aspiration of blood with CSF. The radiofrequency ablation probe was then reinserted after confirmation of AP, oblique as well as lateral view. Radiofrequency ablation was then initiated to 80 degrees Celsius for 90 seconds at each level. Once concluded, the probe was then removed intact and a total of 6 mL of preservative-free 0.25% Marcaine with 40 mg Depo-Medrol was injected in divided doses between those 4 levels. The needles were then removed intact. The patient experienced no signs or symptoms of intrathecal, intravascular injection. The patient experienced no paraesthesia. The procedure was completed without any apparent difficulty, any complication. The patient appeared to tolerate well. Sensory as well as motor exam was unchanged from prior to procedure. ASSESSMENT AND PLAN: This is a 58-year-old female with lumbosacral spondylosis, lumbosacral degenerative disc disease, lumbar facet arthropathy, status post left-sided lumbar radiofrequency ablation of the medial branch L4 through S1. The patient will continue her current medications. The patient will follow up in approximately 2 weeks for reevaluation. Complications None
--- NOTE | 2023-11-29 07:58 | PCM.POST.ANE ---
Anesthesia: Postop Eval I Current Vital Signs Temperature: 97.3 F Pulse Rate: 68 Blood Pressure: 93/54 Respiratory Rate: 16 Pulse Ox: 93 Oxygen Delivery Method: Nasal Cannula Oxygen Flow Rate (L/min): 2 Assessment Airway patent: Yes Spontaneous unlabored respirations: Yes Mental status: Awake and Calm nausea: No Vomiting: No Anesthesia Complication: No Fluid Hydration Crystalloid volume administer (ml): 600 Total IV fluid infused: 600 Progress Note Anesthesia document: Postop Eval 1 completed: Yes
--- NOTE | 2023-11-29 08:08 | POSTOPAN2_ITS ---
Anesthesia Postop Eval I Sum Postop Eval Completion status Anesthesia document: Postop Eval 1 completed: Yes Anesthesia Postop Eval I Summary Anesthesia Postop Eval I Summary: Anesthesia Postop Eval I: Assessment Summary Airway patent Yes 11/29/23 07:59 PEDIATRICIAN MANAGING PARTNER.[email or web address] Spontaneous unlabored Yes 11/29/23 07:59 PEDIATRICIAN MANAGING PARTNER.ALISA respirations Mental status Awake,Calm 11/29/23 07:59 PEDIATRICIAN MANAGING PARTNER.ALISA nausea No 11/29/23 07:59 PEDIATRICIAN MANAGING PARTNER.ALISA Vomiting No 11/29/23 07:59 PEDIATRICIAN MANAGING PARTNER.ALISA Anesthesia Postop Eval I: Fluid Summary Crystalloid volume administer 600 11/29/23 07:59 PEDIATRICIAN MANAGING PARTNER.ALISA (ml) Colloids volume administered ( ml) Blood Product volume administered (ml) Total IV fluid infused 600 11/29/23 07:59 PEDIATRICIAN MANAGING PARTNER.ALISA Anesthesia Postop Eval I: Summary Notes Anesthesia Complication No 11/29/23 07:59 PEDIATRICIAN MANAGING PARTNERRICK Anesthesia Complication Comment: Post-operative progress note Anesthesia: Postop Eval II Evaluation Mental status: Awake Pain Level: 0 nausea: No Vomiting: No
--- NOTE | 2023-11-29 08:08 | PCM.POSTANE2 ---
Anesthesia Postop Eval I Sum Postop Eval Completion status Anesthesia document: Postop Eval 1 completed: Yes Anesthesia Postop Eval I Summary Anesthesia Postop Eval I Summary: Anesthesia Postop Eval I: Assessment Summary Airway patent Yes 11/29/23 07:59 COPING MACHINE OPERATOR.[email or web address] Spontaneous unlabored Yes 11/29/23 07:59 COPING MACHINE OPERATOR.ALISA respirations Mental status Awake,Calm 11/29/23 07:59 COPING MACHINE OPERATOR.ALISA nausea No 11/29/23 07:59 COPING MACHINE OPERATOR.ALISA Vomiting No 11/29/23 07:59 COPING MACHINE OPERATOR.ALISA Anesthesia Postop Eval I: Fluid Summary Crystalloid volume administer 600 11/29/23 07:59 COPING MACHINE OPERATOR.ALISA (ml) Colloids volume administered ( ml) Blood Product volume administered (ml) Total IV fluid infused 600 11/29/23 07:59 COPING MACHINE OPERATOR.ALISA Anesthesia Postop Eval I: Summary Notes Anesthesia Complication No 11/29/23 07:59 COPING MACHINE OPERATORRICK Anesthesia Complication Comment: Post-operative progress note Anesthesia: Postop Eval II Evaluation Mental status: Awake Pain Level: 0 nausea: No Vomiting: No
== END 2023-11-29 08:33 | disposition home or self-care (01) ==
LOC: SDC 05:53 → AC 05:54
PROVIDERS: PCP Family Medicine; Referring Provider Anesthesiology Pain Medicine; Visit Provider Anesthesiology Pain Medicine
PROC: (CPT 64636; principal; 2023-11-29 07:15)
DX: M47.817 Spondylosis without myelopathy or radiculopathy, lumbosacral region (principal); J44.9 Chronic obstructive pulmonary disease, unspecified; M51.37 Other intervertebral disc degeneration, lumbosacral region; M46.96 Unspecified inflammatory spondylopathy, lumbar region; I25.2 Old myocardial infarction; I25.10 Atherosclerotic heart disease of native coronary artery without angina pectoris; G47.33 Obstructive sleep apnea (adult) (pediatric); F17.200 Nicotine dependence, unspecified, uncomplicated; Z79.899 Other long term (current) drug therapy
CPT/HCPCS: 64636; 64635; 01992; 72100; 76000; J7120

== ENCOUNTER 2024-01-10 06:30 | Day surgery (SDC) | payer MEDICARE, MEDICAID, SELFPAY ==
[2024-01-10] VITALS (8 sets, daily range): BP systolic 95–120; BP diastolic 52–75; PULSE 65–82; RESP 16–20; TEMP 36.1–36.3; O2SAT 94–99; BMI 55.7
[2024-01-10] MEDS: Bupivacaine 0.25% 30 ML Vial (06:50)
[2024-01-10] MEDS: Lidocaine 1% (30 ml sdv) 30 ML Vial (06:50)
[2024-01-10] MEDS: MethylPREDNISolone Acetate 40 MG/ML Vial (06:50)
[2024-01-10] MEDS: Lactated Ringers 1,000 ML 15 ML IV (07:09)
--- NOTE | 2024-01-10 07:36 | PRE.ANES_ITS ---
ASA Classification* ASA Classification ASA Classification: 3 Assessment & Plan Anesthesia* Anesthesia Assessment Anesthesia Assessment: Discussed sedation and/or anesthesia options, risks, benefits, and alternatives with patient/parents/legal guardian/POA. Questions invited. The patient/parents/legal guardian/POA seems to understand and agrees to proceed with anesthesia plan. Reviewed the physical assessment, medical history, allergy history and patient home medications list prior to surgery/procedure/anesthetic and documented any changes. Performed airway and anesthesia risk assessments. Anesthesia Type Anesthesia Type: MAC Anesthesia Focused Assessment* Temperature: 96.9 F Pulse Rate: 82 Blood Pressure: 106/75 Respiratory Rate: 20 Pulse Ox: 94 Airway Assessment Mouth opens: >3 cm Mallampati Score: II Focused Labs Anesthesia Preop lab: CBC WBC 13.1 K/mm3 (4.4-11.0) H 06/21/23 16:51 RBC 5.40 M/mm3 (4.2-5.4) 06/21/23 16:51 Hgb 15.4 g/dL (12.0-15.0) H 06/21/23 16:51 Hct 47.9 % (37-47) H 06/21/23 16:51 Plt Count 291 K/mm3 (150-450) 06/21/23 16:51 CHEMISTRY Potassium 3.8 mmol/L (3.5-5.1) 06/21/23 16:51 Sodium 134 mmol/L (136-145) L 06/21/23 16:51 BUN 14 mg/dL (7-18) 06/21/23 16:51 Creatinine 0.87 mg/dL (0.55-1.02) 06/21/23 16:51 Glucose 117 mg/dL (74-106) H 06/21/23 16:51 TSH 1.43 uIU/mL (0.358-3.74) 04/06/23 16:44 COAG Pre-Assessment Diagnosis/Proposed Procedure Planned Operative Procedure(s): Lumbar rfa i4,i5,s1 Anesthesia History Anesthesia History - clinical educator: Anesthesia History - clinical educator Hx Hospitalization No 10/07/23 09:26 Any Problems With Anesthesia No 10/07/23 09:26 Cholinesterase deficiency No 10/07/23 09:26 You/Your Family Experience No 10/07/23 09:26 fever (hyperthermia) with Relationship Recent Exposure to Contagious No 01/10/24 07:10 Disease Does patient have nerve No 10/07/23 09:26 stimulator Patient instructed to have device shut off --Does patient have Pacemaker No 01/10/24 07:10 or ICD? When Was Last Pacemaker Check QUESTION #4 FULL TEXT: You/Your Family Experience fever (hyperthermia) with Anesthesia Last Oral Intake Last Oral intake: Last Oral Intake NPO since 17:30 01/10/24 07:10 Meds taken in AM with sips of Yes 01/10/24 07:10 water? Meds patient instructed to see med list 01/10/24 07:10 take am of surgery PONV PONV - clinical educator: PONV - clinical educator Female HX of Motion Sickness HX of N/V After Surgery Non-Smoker Duration of Surgery greater than 60 minutes Number of Risk Factors PONV Score Height & Weight Height & Weight: Anesthesia: Height & Weight Height 5 ft 7 in 01/10/24 07:10 Weight: 161.3 kg 01/10/24 07:10 Body Mass Index (BMI) 55.7 01/10/24 07:10 Respiratory Assessment Respiratory Assessment - clinical educator: Respiratory Tract Infection Hx - clinical educator Hx Respiratory Tract Infection No 10/07/23 09:26 STOP Sleep Apnea STOP Sleep Apnea - clinical educator: STOP Sleep Apnea - clinical educator Hx Hypertension Yes 10/07/23 09:26 Hx Sleep Apnea Yes 11/29/23 08:10 CPAP Yes: UNABLE TO TOLERATE MASK 11/29/23 08:00 BIPAP No 10/07/23 09:26 Do you snore loudly (louder than talking or can be heard Do you often feel tired/ fatigued/ sleepy during daytime? Has anyone observed you stop breathing during sleep? STOP Results QUESTION #5 FULL TEXT : Do you snore loudly (louder than talking or can be heard through closed doors)? 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 Specify any problems Hx of Preganancy in last 3 Months Nurse Filling Out Transfusion & Questions: Date: Time: Patient unable to answer at this time (ie. confused, unrespo /Reproduction History /Reproductive History - clinical educator: /Reproductive Hx- clinical educator Hx Now Gestational Age (in weeks): EDC: Hx Hx Para Hx Section SAB No 10/07/23 09:26 Active Medications Active Medications: Current Medications Generic Name Dose Route Start Last Admin Trade Name Freq PRN Reason Stop Dose Admin Lactated Ringer's 1,000 mls @ 15 mls/hr 01/10/24 06:45 01/10/24 07:09 IV 15 mls/hr .Q48H NEREIDA Administration PFSH Medical History Wears glasses Wears partial dentures Anxiety Rash Uses wheelchair Walker as ambulation aid Ambulates with cane Arthritis Bladder disease Fatty liver Back pain Smoker CPAP (continuous positive airway pressure) dependence Sleep apnea Asthma COPD (chronic obstructive pulmonary disease) History of echocardiogram Cardiology follow-up encounter Dyslipidemia Hypertension Idiopathic spontaneous dissection of coronary artery Morbid obesity Hyperlipidemia Insulin resistance Depression Restless leg syndrome Insomnia AMIE (obstructive sleep apnea) GERD (gastroesophageal reflux disease) Lumbar stenosis Breast mass, right Bladder spasm Fibromyalgia SOB (shortness of breath) on exertion Fatigue Edema Abnormal TSH Anxiety, generalized Chest pain at rest Chest pain History of myocardial infarction Coronary artery disease Angina pectoris without myocardial infarction Facet arthritis of lumbosacral region Obesity Left knee DJD Right knee DJD Lower extremity pain Peripheral polyneuropathy Sacroiliac joint dysfunction of right side Low back pain Hx of ovarian cyst Angina pectoris COPD (chronic obstructive pulmonary disease) Diabetes Home Medications ?Medication ?Instructions ?Recorded ?Last Taken ?Type albuterol sulfate 90 mcg/actuation 2 puff inhalation Q4H PRN 02/18/23 Unknown History aerosol inhaler shortness of breath or wheezing fluticasone propionate 50 1 spray intranasal DAILY 04/20/23 Unknown History mcg/actuation nasal spray,suspension ipratropium 0.5 mg-albuterol 3 mg 3 ml inhalation Q4H PRN shortness 04/20/23 Unknown History (2.5 mg base)/3 mL nebulization of breath soln aspirin 81 mg tablet,delayed 81 mg PO DAILY 06/02/23 Unknown History release (Adult Aspirin Regimen) atorvastatin 40 mg tablet 40 mg PO DAILY 06/29/23 Unknown History desvenlafaxine succinate 100 mg 100 mg PO DAILY 06/29/23 01/10/24 History tablet,extended release 24 hr ergocalciferol (vitamin D2) 1,250 1,250 mcg PO QWEEK 06/29/23 Unknown History mcg (50,000 unit) capsule fluticasone fur. 200 mcg-umeclid 1 inh inhalation DAILY 06/29/23 01/10/24 History 62.5 mcg-vilant 25 mcg inhalat.powder (Trelegy Ellipta) hydroxyzine HCl 25 mg tablet 25 mg PO DAILY 06/29/23 Unknown History nystatin 100,000 unit/gram topical 1 applic topical DAILY 06/29/23 Unknown History powder (Nystop) oxybutynin chloride 5 mg tablet 5 mg PO DAILY 06/29/23 Unknown History pantoprazole 20 mg tablet,delayed 20 mg PO DAILY 06/29/23 Unknown History release ropinirole 0.5 mg tablet 0.5 mg PO QHS 06/29/23 Unknown History trazodone 100 mg tablet 100 mg PO QHS 06/29/23 Unknown History amlodipine 5 mg tablet 5 mg PO DAILY #90 tabs 07/07/23 01/10/24 Rx montelukast 10 mg tablet 10 mg PO DAILY 07/07/23 Unknown History hydrocodone-acetaminophen 5-325mg 1 tab PO QDAY PRN pain 08/26/23 Unknown History 5mg-325mg nitroglycerin 0.3 mg sublingual 0.3 mg sublingual ONCE PRN chest 08/26/23 Unknown History tablet pain suvorexant 10 mg tablet (Belsomra) 10 mg PO QHS PRN sleep 08/26/23 Unknown History Allergy/AdvReac Type Severity Reaction Status Date / Time adhesive tape Allergy Intermediate Rash Verified 01/10/24 07:16 Family History Mother Heart disease Arthritis Grandmother Heart disease Surgical History Hx of cardiac catheterization Hx of ovarian cystectomy Hx of tubal ligation Hx of breast biopsy Hx of appendectomy Social History Smoking Status: Current every day smoker tobacco type: cigarettes alcohol intake: never substance use type: does not use caffeine: Yes Type: coffee Number of servings: 32 Review of Systems (Anesthesia) ROS Narrative System reviewed and no additional complaints, except as documented.
--- NOTE | 2024-01-10 08:31 | RAD_ITS ---
PROCEDURE: Right L4-S1 radiofrequency ablation. DATE OF EXAMINATION: January 10, 2024. INDICATION: Female, 58 years old. Chronic low back pain. FLUOROSCOPY TIME (if supplied): (16 seconds) minutes/seconds. 17.16 mGy. 9 images were submitted. RAD/L/S Spine Min 4 Views IMPRESSION: Intraoperative fluoroscopic services provided for right L4-S1 medial branch radiofrequency ablation. Electronically Signed: Jorgito Morales MD at 11:15 EDT ,
--- NOTE | 2024-01-10 08:52 | PCM.POST.ANE ---
Anesthesia: Postop Eval I Current Vital Signs Temperature: 97.2 F Pulse Rate: 76 Blood Pressure: 99/54 Respiratory Rate: 18 Pulse Ox: 97 Oxygen Delivery Method: Nasal Cannula Oxygen Flow Rate (L/min): 2 Assessment Airway patent: Yes Spontaneous unlabored respirations: Yes Mental status: Awake and Calm nausea: No Vomiting: No Anesthesia Complication: No Fluid Hydration Crystalloid volume administer (ml): 300 Total IV fluid infused: 300 Progress Note Post-operative progress note: C&DB ENC'D Anesthesia document: Postop Eval 1 completed: Yes
--- NOTE | 2024-01-10 09:12 | PCM.OPRPT ---
Report of Operation Date of Procedure: 01/10/24 Pre-Operative Diagnosis: Lumbosacral spondylosis, lumbosacral degenerative disc disease, lumbar facet arthropathy Post-Operative Diagnosis: Lumbosacral spondylosis, lumbosacral degenerative disc disease, lumbar facet arthropathy Surgery/Procedure Performed:: Right-sided lumbar radiofrequency ablation of the medial branch L4, L5, S1 Type of Anesthesia: MAC Estimated Blood Loss (mL): Minimal Description of Procedure: History and physical today was reviewed. Risks and benefits of procedure explained. The patient understood, agreed to the procedure and informed consent was obtained. IV inserted per routine protocol. The patient was taken to the operating room, placed in the prone position with a pillow positioned underneath the abdomen. The right side of the lower back was prepped and draped in a sterile fashion using iodine x 3. Under fluoroscopy guidance, on an oblique view, the L3 through S1 vertebral bodies were visualized. The skin and subcutaneous tissue was anesthetized with approximately 10 mL of 1% lidocaine using a 25-gauge regular needle. Under direct visualization with fluoroscopy at approximately 25-degree angle, starting on the right L3, ending on the right S1 passing through the L4-L5 using a 20-gauge 15 cm with a 10 mm curved active tip radiofrequency ablation needle the needle passed through the skin. The tip of the needle was maneuvered and directed towards the superior and medial gutter of the transverse process at the vicinity of the medial branch. Once the tip of the needle was in contact with the bone, the needle pulled approximately 2 mm up the bone. The stylet of each needle was then removed. After negative aspiration of blood with CSF and confirmation of AP as well as oblique view, radiofrequency ablation probe was then inserted at each level. Impedance was then recorded at L3 to be 352, at L4 365, at L5 355, at S1 308 ohm. Motor-evoked potential was then initiated to 1.5 volt without any motor response at each corresponding level. The probe was then removed intact and a total of 6 mL preservative-free 1% lidocaine was injected in divided doses between those 4 levels after negative aspiration of blood with CSF. The radiofrequency ablation probe was then reinserted after confirmation of AP, oblique as well as lateral view. Radiofrequency ablation was then initiated to 80 degrees Celsius for 90 seconds at each level. Once concluded, the probe was then removed intact and a total of 6 mL of preservative-free 0.25% Marcaine with 40 mg Depo-Medrol was injected in divided doses between those 4 levels. The needles were then removed intact. The patient experienced no signs or symptoms of intrathecal, intravascular injection. The patient experienced no paraesthesia. The procedure was completed without any apparent difficulty, any complication. The patient appeared to tolerate well. Sensory as well as motor exam was unchanged from prior to procedure. ASSESSMENT AND PLAN: This is a 58-year-old female with lumbosacral spondylosis, lumbosacral degenerative disc disease, lumbar facet arthropathy, status post right-sided radiofrequency ablation of the medial branch L4 through S1. The patient will continue her current medications. The patient will follow up in approximately 2 weeks for reevaluation. Complications None
--- NOTE | 2024-01-10 11:22 | POSTOPAN2_ITS ---
Anesthesia Postop Eval I Sum Postop Eval Completion status Anesthesia document: Postop Eval 1 completed: Yes Anesthesia Postop Eval I Summary Anesthesia Postop Eval I Summary: Anesthesia Postop Eval I: Assessment Summary Airway patent Yes 01/10/24 09:00 SPRAY [email or web address] Spontaneous unlabored Yes 01/10/24 09:00 SPRAY [email or web address] respirations Mental status Awake,Calm 01/10/24 09:00 SPRAY [email or web address] nausea No 01/10/24 09:00 SPRAY TECHNICIAN.[email or web address] Vomiting No 01/10/24 09:00 [facility] Postop Eval I: Fluid Summary Crystalloid volume administer 300 01/10/24 09:00 SPRAY [email or web address] (ml) Colloids volume administered ( ml) Blood Product volume administered (ml) Total IV fluid infused 300 01/10/24 09:00 [facility] Anesthesia Postop Eval I: Summary Notes Anesthesia Complication No 01/10/24 09:00 [facility] Anesthesia Complication Comment: Post-operative progress note C&DB ENC'D 01/10/24 09:00 [facility]IC[facility] Anesthesia: Postop Eval II Evaluation Mental status: Awake Pain Level: 0 nausea: No Vomiting: No
--- NOTE | 2024-01-10 11:22 | PCM.POSTANE2 ---
Anesthesia Postop Eval I Sum Postop Eval Completion status Anesthesia document: Postop Eval 1 completed: Yes Anesthesia Postop Eval I Summary Anesthesia Postop Eval I Summary: Anesthesia Postop Eval I: Assessment Summary Airway patent Yes 01/10/24 09:00 MOTION PI[employer]URE EQUIPMENT MACHINIST.[email or web address] Spontaneous unlabored Yes 01/10/24 09:00 MOTION PICTURE EQUIPMENT MACHINIST.[email or web address] respirations Mental status Awake,Calm 01/10/24 09:00 MOTION PICTURE EQUIPMENT MACHINIST.SCHR nausea No 01/10/24 09:00 MOTION PICTURE EQUIPMENT MACHINIST.[email or web address] Vomiting No 01/10/24 09:00 [employer]CT[employer] E[facility]IPMENT [email or web address] Anesthesia Postop Eval I: Fluid Summary Crystalloid volume administer 300 01/10/24 09:00 MOTION PICTURE EQUIPMENT MACHINIST.SCHR (ml) Colloids volume administered ( ml) Blood Product volume administered (ml) Total IV fluid infused 300 01/10/24 09:00 MOTION PICTURE EQUIPMENT MACHINIST.[email or web address] Anesthesia Postop Eval I: Summary Notes Anesthesia Complication No 01/10/24 09:00 MOTION PICTURE EQUIPMENT MACHINIST.[email or web address] Anesthesia Complication Comment: Post-operative progress note C&DB ENC'D 01/10/24 09:00 MOT[employer] PICTURE EQUIPMENT MACHINIST.[email or web address] Anesthesia: Postop Eval II Evaluation Mental status: Awake Pain Level: 0 nausea: No Vomiting: No
== END 2024-01-10 09:41 | disposition home or self-care (01) ==
LOC: SDC 06:31 → AC 06:32
PROVIDERS: PCP Family Medicine; Referring Provider Family Medicine; Visit Provider Anesthesiology Pain Medicine
PROC: (CPT 64635; principal; 2024-01-10 07:55)
DX: M47.817 Spondylosis without myelopathy or radiculopathy, lumbosacral region (principal); J44.9 Chronic obstructive pulmonary disease, unspecified; M51.37 Other intervertebral disc degeneration, lumbosacral region; F17.210 Nicotine dependence, cigarettes, uncomplicated; Z98.51 Tubal ligation status; I25.10 Atherosclerotic heart disease of native coronary artery without angina pectoris; K21.9 Gastro-esophageal reflux disease without esophagitis; I25.2 Old myocardial infarction; E78.5 Hyperlipidemia, unspecified; G47.33 Obstructive sleep apnea (adult) (pediatric); M48.062 Spinal stenosis, lumbar region with neurogenic claudication; M46.96 Unspecified inflammatory spondylopathy, lumbar region; Z79.891 Long term (current) use of opiate analgesic; M48.07 Spinal stenosis, lumbosacral region
CPT/HCPCS: 64635; 64636; 72110; 76000; J7120

== ENCOUNTER → 2024-06-27 | Outpatient (CLI) | payer MEDICARE, MEDICAID, SELFPAY ==
--- NOTE | 2024-06-27 15:34 | MRI_ITS ---
PROCEDURE: SPINE LUMBAR (ROUTINE) REASON FOR EXAM: DDD INCREASED PAIN POST RFA IN TAILBONE TECHNIQUE: Multisequence multiplanar MR imaging of the lumbar spine was performed without IV contrast. COMPARISON: 02/18/2023. FINDINGS: Lumbarization of S1 noted with a rudimentary S1-S2 disc. For the purposes of this report, the last well-formed disc space will be assigned L5-S1. Exam is limited by soft tissue attenuation of signal with resultant distortion limitation in signal to noise ratio. Additional mild motion limitation. Vertebral body heights are preserved. Degenerative type marrow signal changes at T12 otherwise grossly unremarkable marrow signal allowing for limitations. No significant malalignment. Conus medullaris terminates normally at the L2 superior endplate level. Unremarkable appearance of the cauda equina. L1-2: Unremarkable. L2-3: Minimal diffuse disc bulging. No significant spinal canal or foraminal stenosis. Mild facet arthropathy. L3-4: Minimal diffuse disc bulging. No significant spinal canal or foraminal stenosis. Mild facet arthropathy. L4-5: Minimal disc bulging, slightly asymmetric to the left. Facet arthropathy. Mild ligamentum flavum hypertrophy. No significant spinal canal or foraminal stenosis. L5-S1: Minimal left foraminal disc protrusion. No significant spinal canal or foraminal stenosis. Mild facet arthropathy. Other: Lower cervical spondylosis, not well evaluated. Infrarenal abdominal aortic ectasia to 2.5 x 2.8 cm. MRI/Spine Lumbar (Routine) IMPRESSION: 1. Mild spondylosis as detailed without high-grade spinal canal or foraminal st enosis identified. 2. Abdominal aortic ectasia to 2.8 cm. Recommend follow-up in 5 years per 2013 ACR recommendations. 3. Additional description as above. Reading Location: [facility]
== END | disposition home or self-care (01) ==
LOC: MRI 15:29
PROVIDERS: PCP Family Medicine; Referring Provider Clinical Nurse Specialist Adult Health; Visit Provider Clinical Nurse Specialist Adult Health
DX: M51.369 Other intervertebral disc degeneration, lumbar region without mention of lumbar back pain or lower extremity pain (principal); M53.3 Sacrococcygeal disorders, not elsewhere classified
CPT/HCPCS: 72148

== ENCOUNTER → 2024-08-11 | Outpatient (CLI) | payer MEDICARE, MEDICAID, SELFPAY ==
--- NOTE | 2024-08-11 16:42 | RAD_ITS ---
PROCEDURE: 08/11/2024 REASON FOR EXAM: TMJ, DISLOCATION, JAW PAIN, *FACIAL PIERCING IN IMAGES TECHNIQUE: 4 view(s) of the facial bones COMPARISON: None. FINDINGS: Metallic artifact seen within the patient's oral cavity, likely represents wire with dentures. This overall limits evaluation. No gross fracture or dislocation is seen within the mandible. For TMJ pain, consider TMJ MRI or CT protocol. RAD/Mandible Min 4 Views IMPRESSION: As above. Reading Location: [id number]
== END | disposition home or self-care (01) ==
LOC: MTRAD 16:40
PROVIDERS: PCP Family Medicine; Referring Provider Family Medicine; Visit Provider Family Medicine
DX: R68.84 Jaw pain (principal); S03.00XA Dislocation of jaw, unspecified side, initial encounter
CPT/HCPCS: 70110

== ENCOUNTER → 2025-03-26 | Outpatient (CLI) | payer MEDICARE, MEDICAID, SELFPAY ==
[2025-03-26 17:40] LABS: Hematocrit 48.8 % (37-47); Hemoglobin 16.2 g/dL (12.0-15.0); Mean Corp Hgb Conc 33.2 g/dL (32-36); Mean Corpuscular Volume 87.9 fL (81-99); Mean Platelet Vol. 10.4 fl (6.2-12.0); Platelet Count 324 K/mm3 (150-450); RBC Distribution Width CV 14.4 % (11.6-14.6); RBC Distribution Width SD 46.3 fl (35.1-43.9); Red Blood Count 5.55 M/mm3 (4.2-5.4); White Blood Count 9.3 K/mm3 (4.4-11.0)
[2025-03-26 18:17] LABS: Creatinine, Urine (random) 46.00 mg/dL (28.00-217.00); Microalbumin,Random Urine 30.1 mg/L (<20 mg/L)
[2025-03-26 18:29] LABS: AST(SGOT) 23 U/L (<=31); Alanine Aminotransfer ALT/SGPT 19 U/L (<=34); Albumin, Serum 4.0 g/dL (3.4-4.8); Alkaline Phosphatase 127 U/L (35-104); Anion Gap 14 (5-15); BUN 10 mg/dL (4-19); BUN/Creat Ratio 15.9 RATIO (10-20); Calcium,Total 10.0 mg/dL (7.6-11.0); Carbon Dioxide 24.7 mmol/L (21.0-32.0); Chloride 99 mmol/L (98-108); Cholesterol 217 mg/dL (<=200); Globulin 3.9 g/dL (2.2-4.2); Glucose 76 mg/dL (70-99); Low Density Lipoprotein Calc. 111 mg/dL; Potassium 3.9 mmol/L (3.3-5.1); Triglycerides 270 mg/dL; Very Low Density Lipoprotein 54 mg/dL (5-40); Vitamin D,25 Hydroxy 33.6 ng/mL (30-100); cholesterol:hdl ratio screen 3.61
== END | disposition home or self-care (01) ==
LOC: MFPLAB 15:51
PROVIDERS: PCP Family Medicine; Visit Provider Family Medicine
DX: G62.9 Polyneuropathy, unspecified (principal); E11.40 Type 2 diabetes mellitus with diabetic neuropathy, unspecified; E78.5 Hyperlipidemia, unspecified
CPT/HCPCS: 36415; 80053; 80061; 82043; 82306; 82570; 83036; 84443; 85027